=== PATIENT | male | born 1980 | race Caucasian/White ===

== ENCOUNTER 2020-11-03 02:02 | Outpatient (CLI) | payer BC, SELFPAY ==
[2020-11-03 18:59] LABS: SARS-CoV-2 RNA PCR Negative
== END 2020-11-03 02:03 | disposition home or self-care (01) ==
LOC: ANHCOVIDDT 02:04
PROVIDERS: PCP Family Medicine; Visit Provider Internal Medicine Gastroenterology
DX: Z01.812 Encounter for preprocedural laboratory examination (principal); Z20.828 Contact with and (suspected) exposure to other viral communicable diseases
CPT/HCPCS: 87635; C9803; U0003

== ENCOUNTER → 2020-11-07 10:30 | Day surgery (SDC) | payer BC, SELFPAY ==
[2020-11-02 10:20] VITALS: BMI 25.7
[2020-11-07] MEDS: LACTATED RINGERS 1,000 ML 150 ML IV CONT (06:55)
[2020-11-07 06:57] VITALS: BP 133/87; PULSE 96; RESP 16; TEMP 36.6; O2SAT 98; BMI 25.7
--- NOTE | 2020-11-07 07:58 | WPDANESEPPF ---
Anes - Initial Pre Proc Eval Procedure: Operation Date: 11/07/20 08:15 Proposed Procedures p Colonoscopy - Long Albright MD Date/Time: 11/07/20 07:58 Surgeon: Long Albright MD Pre Op Diagnosis: Rectal Bleeding Patient Data Age: 40 Gender: M Height: 6 ft Weight: 85.9 kg Last Vital Signs Temp 98 F 11/07/20 06:57 Pulse 96 11/07/20 06:57 Resp 16 11/07/20 06:57 BP 133/87 11/07/20 06:57 Pulse Ox 98 11/07/20 06:57 Allergies Allergy/AdvReac Type Severity Reaction Status Date / Time No Known Allergies Allergy Mild Verified 11/07/20 06:56 Home Medications Medication Instructions Recorded Confirmed Type sodium,potassium,mag sulfates 17.5 See Rx Instructions PO .COMPLEX 11/02/20 Rx gram-3.13 gram-1.6 gram oral soln #354 ml Patient hx anesthesia problems: none Family hx anesthesia problems: none [facility], [facility] Past Medical History Medical History (Updated 11/07/20 @ 07:58 by Saravanan Etienne MD) Healthy adult Hemorrhoid Social History Social History Smoking status: Never smoker Alcohol intake: current Drinks per week: 2 Substance use: never Substance use type: does not use Living arrangements: with family Gender identity (if verbalized by the patient): Male Spiritual care concerns: No Anes - Eval Final PreProcedure Day of Procedure 11/07/20 07:58 Patient weight: normal Heart: regular rate and rhythm Lungs: clear to auscultation Airway: Mallampati scale class II Neurological: alert and oriented Last oral intake: >/= 8 hours ASA classification: I Emergent: no Anesthetic plan: proceed Anesthesia type and monitoring: general GIVS and standard monitoring Informed Consent: The patient's anesthetic plan and its attendant risks and benefits were discussed with the patient/family/POA. Questions were solicited and answers provided to the satisfaction of the patient/family/POA.
--- NOTE | 2020-11-07 08:14 | WPDHPUPDATE1 ---
History and Physical Update Update Date/Time: 11/07/20 08:14 History and Physical has been reviewed, including an updated exam of the patient. There are NO changes in the patient's condition. Risks, benefits, and alternatives have been discussed and questions answered. Patient agrees to proceed with procedure.
[2020-11-07 08:42] VITALS: BP 111/79; PULSE 96; RESP 20; O2SAT 97
[2020-11-07 08:52] VITALS: BP 108/73; PULSE 74; RESP 21; O2SAT 97
[2020-11-07 09:02] VITALS: BP 118/76; PULSE 76; RESP 19; O2SAT 98
== END ==
PROVIDERS: PCP Family Medicine; Visit Provider Internal Medicine Gastroenterology
PROC: 0DJD8ZZ Inspection of Lower Intestinal Tract, Via Natural or Artificial Opening Endoscopic (ICD-10-PCS; CPT 45378; principal; 2020-11-07 08:15)
DX: K62.5 Hemorrhage of anus and rectum (principal); D12.4 Benign neoplasm of descending colon; K92.1 Melena; K57.30 Diverticulosis of large intestine without perforation or abscess without bleeding; K64.8 Other hemorrhoids
CPT/HCPCS: 45385; 88305; J2704; J7120

== ENCOUNTER 2023-11-24 02:51 | Day surgery (SDC) | payer BC, SELFPAY ==
[2023-10-27 11:40] VITALS: BMI 26.4
--- NOTE | 2023-11-20 10:32 | SUR.PREOP ---
Patient called regarding upcoming procedure. Reviewed preop instructions, appointment times, and procedure prep.
[2023-11-24 06:21] VITALS: BP 142/87; PULSE 78; RESP 16; TEMP 36.4; O2SAT 100; BMI 26.5
[2023-11-24] MEDS: LACTATED RINGERS 1,000 ML 150 ML IV CONT (06:29)
--- NOTE | 2023-11-24 07:14 | P.PNAN_ITS ---
Anes - Initial Pre Proc Eval Procedure: Operation Date: 11/24/23 07:30 Proposed Procedures p Esophagogastroduodenoscopy - Long Albright MD Date/Time: 11/24/23 07:14 Surgeon: Long Albright MD Pre Op Diagnosis: dysphagia,fam hx of digestive diseases, Patient Data Age: 43 Gender: M Height: 1.83 m Weight: 88.8 kg Last Vital Signs Temp 97.5 F L 11/24/23 06:21 Pulse 78 11/24/23 06:21 Resp 16 11/24/23 06:21 BP 142/87 H 11/24/23 06:21 Pulse Ox 100 11/24/23 06:21 O2 Del Method Room Air 11/24/23 06:21 Allergies Allergy/AdvReac Type Severity Reaction Status Date / Time No Known Allergies Allergy Mild Verified 11/24/23 06:21 Home Medications Medication Instructions Recorded Confirmed Type No Home Medications 10/15/23 11/24/23 History Patient hx anesthesia problems: none Family hx anesthesia problems: none Results Review: All pre-operative results and documents have been reviewed as part of the pre- operative evaluation. [facility] Past Medical History Medical History Healthy adult Hemorrhoid Social History Social History (Updated 10/15/23 @ 07:48 by Hailey Minaya MA) Smoking status: Never smoker Alcohol intake: current Drinks per week: 1 Substance use: never Substance use type: does not use Living arrangements: with family Occupation/Education: occupation Gender identity (if verbalized by the patient): Male Sexual Orientation (if Verbalized by the Patient): Straight or Heterosexual Spiritual care concerns: No Anes - Eval Final PreProcedure Day of Procedure 11/24/23 07:14 Patient weight: normal Heart: regular rate and rhythm Lungs: clear to auscultation Airway: Mallampati scale class II Neurological: alert and oriented Last oral intake: >/= 8 hours ASA classification: I Emergent: no Anesthetic plan: proceed Anesthesia type and monitoring: general GIVS and standard monitoring Results Review: All pre-operative results and documents have been reviewed as part of the pre- operative evaluation. Informed Consent: The patient's anesthetic plan and its attendant risks and benefits were discussed with the patient/family/POA. Questions were solicited and answers provided to the satisfaction of the patient/family/POA.
--- NOTE | 2023-11-24 07:34 | PM.HPGS ---
History of Present Illness History of Present Illness Consent: Risks, benefits, and alternatives have been discussed and questions answered. Patient agrees to proceed with procedure. Chief complaint: dysphagia,fam hx of digestive diseases, Narrative: Moi Armstrong is a 43 year old male with intermittent dysphagia for several years, never had egd. Esophagram showed hiatal hernia Review of Systems Constitutional: Constitutional: Denies headache(s) and Denies weakness Eyes: Eyes: Denies blurry vision ENT: Reports Normal hearing present, Denies headache(s) and Denies neck pain Cardiovascular: Cardiovascular: Denies chest pain and Denies dyspnea Respiratory: Respiratory: Denies dyspnea Gastrointestinal: Gastrointestinal: Reports no additional gastrointestinal complaints Genitourinary: Genitourinary: Denies dysuria Musculoskeletal: Musculoskeletal: Denies neck pain Integumentary/Breasts: Skin/Breast: Denies dry skin Neurologic: Reports Normal hearing present, Denies headache(s) and Denies weakness Psychiatric: Psychiatric: Denies anxiety Endocrine: Endocrine: Denies change in body appearance Hematologic/Lymphatic: Hematologic/Lymphatic: Denies easy bleeding Allergic/Immunologic: Allergic/Immunologic: Denies urticaria PMFSH Past Medical History Medical History (Updated 11/24/23 @ 07:35 by Long Albright MD) Dysphagia Healthy adult Hemorrhoid Social History Social History (Updated 10/15/23 @ 07:48 by Hailey Minaya MA) Smoking status: Never smoker Alcohol intake: current Drinks per week: 1 Substance use: never Substance use type: does not use Living arrangements: with family Occupation/Education: occupation Gender identity (if verbalized by the patient): Male Sexual Orientation (if Verbalized by the Patient): Straight or Heterosexual Spiritual care concerns: No Meds Home Medications and Allergies Home Medications Medication Instructions Recorded Confirmed Type No Home Medications 10/15/23 11/24/23 History Allergies Allergy/AdvReac Type Severity Reaction Status Date / Time No Known Allergies Allergy Mild Verified 11/24/23 06:21 Vital Signs Vital Signs - 24 hr 11/24/23 06:21 Temperature 97.5 F L Pulse Rate 78 Respiratory Rate 16 Blood Pressure 142/87 H Pulse Oximetry 100 Oxygen Delivery Room Air Exam Const: General: comfortable and no acute distress HENMT: Face/Nose/Sinus: Normal nares present Eyes: General: appearance normal, both eyes and all related structures Neck: Neck: no JVD Resp: Auscultation: clear to auscultation bilaterally Cardio: Rate: regular rate Rhythm: regular rhythm GI: Inspection: non-distended GI Palp: Yes Soft to palpation Skin: General skin exam: normal color Neuro: General: gait normal Speech: normal speech Extrem: General: normal to inspection Psych: Mental Status: mental status grossly normal Assessment and Plan Assessment and plan (1) Hiatal hernia: Code(s): K44.9 - Diaphragmatic hernia without obstruction or gangrene Status: Acute (2) Dysphagia: Code(s): R13.10 - Dysphagia, unspecified Status: Acute Assessment and Plan: egd to assess
[2023-11-24 07:46] VITALS: BP 116/82; PULSE 74; RESP 17; O2SAT 99
[2023-11-24 07:56] VITALS: BP 122/83; PULSE 66; RESP 16; O2SAT 98
[2023-11-24 08:06] VITALS: BP 121/86; PULSE 61; RESP 22; O2SAT 97
== END 2023-11-24 08:12 | disposition home or self-care (01) ==
PROVIDERS: PCP Family Medicine; Visit Provider Internal Medicine Gastroenterology
PROC: 0DJ08ZZ Inspection of Upper Intestinal Tract, Via Natural or Artificial Opening Endoscopic (ICD-10-PCS; CPT 43235; principal; 2023-11-24 07:30)
DX: K44.9 Diaphragmatic hernia without obstruction or gangrene (principal); K22.2 Esophageal obstruction; K21.00 Gastro-esophageal reflux disease with esophagitis, without bleeding; K29.50 Unspecified chronic gastritis without bleeding
CPT/HCPCS: 43450; 43239; 88305; J2704; J7120

== ENCOUNTER 2024-12-08 00:35 | Day surgery (SDC) | payer BC, SELFPAY ==
[2024-12-06 08:14] VITALS: BMI 26.4
--- NOTE | 2024-12-06 08:15 | PC.NURSE ---
Addendum entered by Chuckie Mehta RN 12/06/24 14:20: Procedure time is 1215. Original Note: Report to the Outpatient Waiting Room, entrance under the green pavilion located off [facility], at time _1015_ on date _[id number]_. Planned Procedure Time: __.? Time changes happen often and if your time is changed the preop area will call you the afternoon before. - You and your visitor will be asked to self-screen and do not enter if you have any COVID symptoms. Please call surgeon if you need to reschedule. - A mask is optional within the hospital at this time. Patients may have clear liquids (water, carbonated beverages, clear teas, apple juice) until 3 hours prior to surgery with a maximum of 20 ounces. - No food from midnight until time of surgery and no smoking. This includes no chewing gum, candy or mints. Take only the following medications with a SIP of water on the morning of surgery: ___None DO NOT STOP ANY OF YOUR OTHER PRESCRIPTION MEDICATIONS PRIOR TO SURGERY EXCEPT THE FOLLOWING Medications to discontinue per physician None____ Date to take last dose Please no make-up, nail bangladeshi, hairspray, perfume, deodorant, or body powder the day of surgery.? No jewelry (including any body piercings) or valuables the day of surgery, leave them at home.? Please take a shower or bath the night before, or the morning of, surgery with an antibacterial soap.? Wear comfortable, loose fitting clothing.? - Jewelry must be removed prior to entering the operating room.? Rings and piercings that are not removed may be cut off. - The hospital will not accept responsibility for valuables.? - Please leave all valuables, including medications, at home the day of surgery. If you are going home after surgery, a licensed stunt driver must drive you home.? - NO public transportation without another adult if you receive anesthesia. - We recommend that an adult stay with you for 24 hours following discharge. - We also recommend that you do not drive, make important decision, drink alcoholic beverages, or take any drugs that were not prescribed by your health care provider for at least 24 hours after your discharge time. Follow any additional instructions given to you from your surgeon. Telephone instructions given to __Brian___and asked if any additional questions and then verbalized understanding. Patient advised to call surgeon office or pre surgery nurse liaison [phone] if any additional questions.
--- NOTE | 2024-12-07 16:00 | P.PNAN_ITS ---
Anes - Initial Pre Proc Eval Procedure: Operation Date: 12/08/24 11:15 Proposed Procedures p Cystoscopy, Urethral Dilatation - Timbo Michel MD Date/Time: 12/07/24 16:00 Surgeon: Timbo Michel MD Pre Op Diagnosis: urethral stricuture Patient Data Age: 44 Gender: M Height: 1.83 m Weight: 88.6 kg Allergies Allergy/AdvReac Type Severity Reaction Status Date / Time No Known Allergies Allergy Mild Verified 12/08/24 09:13 Home Medications ?Medication ?Instructions ?Recorded ?Confirmed ?Type No Home Medications 10/15/23 12/06/24 History Patient hx anesthesia problems: none Family hx anesthesia problems: none Results Review: All pre-operative results and documents have been reviewed as part of the pre- operative evaluation. [facility]LY [facility], [facility] Past Medical History Medical History (Updated 12/08/24 @ 09:53 by Omari Lantigua DO) Hiatal hernia Dysphagia Healthy adult Hemorrhoid Social History Social History Smoking status: Never smoker Alcohol intake: current Drinks per week: 1 Substance use: never Substance use type: does not use Living arrangements: with family Occupation/Education: occupation Gender identity (if verbalized by the patient): Male Sexual Orientation (if Verbalized by the Patient): Straight or Heterosexual Spiritual care concerns: No Anes - Eval Final PreProcedure Day of Procedure 12/07/24 16:00 Patient weight: overweight Heart: regular rate and rhythm Lungs: clear to auscultation Airway: Mallampati scale class II Neurological: alert and oriented Last oral intake: >/= 8 hours ASA classification: II Emergent: no Anesthetic plan: proceed Anesthesia type and monitoring: general GIVS and standard monitoring Results Review: All pre-operative results and documents have been reviewed as part of the pre- operative evaluation. Informed Consent: The patient's anesthetic plan and its attendant risks and benefits were discussed with the patient/family/POA. Questions were solicited and answers provided to the satisfaction of the patient/family/POA.
[2024-12-08] VITALS (8 sets, daily range): BP systolic 116–142; BP diastolic 71–92; PULSE 55–76; RESP 12–21; TEMP 36.3–36.7; O2SAT 98–100
--- NOTE | 2024-12-08 06:24 | WPDHPUPDATE1 ---
History and Physical Update Update Date/Time: 12/08/24 06:24 History and Physical has been reviewed, including an updated exam of the patient. There are NO changes in the patient's condition. Risks, benefits, and alternatives have been discussed and questions answered. Patient agrees to proceed with procedure.
[2024-12-08] MEDS: LACTATED RINGERS 1,000 ML 30 ML IV CONT (09:40)
[2024-12-08] MEDS: ceFAZolin 2 GM/D5W 50 ML 2 GM/50 ML BAG IVPB (10:52)
--- NOTE | 2024-12-08 11:23 | W.PM.PROC2 ---
Procedure Note - Detailed Date of Procedure 12/08/24 Pre-op Diagnosis Urethral stricuture Post-op Diagnosis Same Procedure Performed Cystoscopy, urethral dilatation Surgeon Timbo Michel MD Anesthesia General Description of Procedure The patient was brought to the operative suite where he was prepped and draped in a routine sterile fashion while in the dorsal lithotomy position. urethra scope EU was undertaken with a 19 F rigid cystoscope. He had 2 moderately constricting bulbous urethral strictures which I dilated from 18 F to 28 F using Tonia sounds with ease. Completion cystoscopy showed mild lateral lobe hyperplasia of the prostate without obstruction of the prostatic urethra. There was no median lobe enlargement. The bladder was slightly trabeculated. Mucosa of the bladder was normal without hyperemia. There was no intravesical foreign body or neoplasm. He had a single orthotopic ureteral orifice bilaterally. This point the cystoscope was removed and patient was taken recovery room in good condition. Drains No Pathology None sent Complications No immediate complications Condition Stable
== END 2024-12-08 12:35 | disposition home or self-care (01) ==
PROVIDERS: PCP Family Medicine; Visit Provider Urology
PROC: 0T7D8ZZ Dilation of Urethra, Via Natural or Artificial Opening Endoscopic (ICD-10-PCS; CPT 52281; principal; 2024-12-08 11:15)
DX: N35.912 Unspecified bulbous urethral stricture, male (principal)
CPT/HCPCS: 52281; A9270; J0690; J1100; J1885; J2405; J2704; J7120

== ENCOUNTER 2025-09-27 02:05 | Day surgery (SDC) | payer BC, SELFPAY ==
[2025-09-18 14:49] VITALS: BMI 25.7
[2025-09-27 09:22] VITALS: BP 148/101; PULSE 72; RESP 16; TEMP 36.4; O2SAT 100; BMI 26.2
--- NOTE | 2025-09-27 09:32 | WPDANESEPPF ---
Anes - Initial Pre Proc Eval Procedure: Operation Date: 09/27/25 10:30 Proposed Procedures p Screening Colonoscopy - Long Albright MD Date/Time: 09/27/25 09:32 Surgeon: Long Albright MD Pre Op Diagnosis: Personal history of colon polyps, unspecified Patient Data Age: 44 Gender: M Height: 1.83 m Weight: 87.5 kg Last Vital Signs Temp 36.4 C 09/27/25 09:22 Pulse 72 09/27/25 09:22 Resp 16 09/27/25 09:22 BP 148/101 H 09/27/25 09:22 Pulse Ox 100 09/27/25 09:22 O2 Del Method Room Air 09/27/25 09:22 Allergies Allergy/AdvReac Type Severity Reaction Status Date / Time No Known Allergies Allergy Mild Verified 09/27/25 09:28 Home Medications ?Medication ?Instructions ?Recorded ?Confirmed ?Type No Home Medications 09/18/25 09/18/25 History Patient hx anesthesia problems: none Family hx anesthesia problems: none Results Review: All pre-operative results and documents have been reviewed as part of the pre-operative evaluation. FORMERLY [facility] Past Medical History Medical History (Updated 12/08/24 @ 11:28 by Timbo Michel MD) Hiatal hernia Dysphagia Healthy adult Hemorrhoid Social History Social History Smoking status: Never smoker Alcohol intake: never Drinks per week: 1 Substance use: never Substance use type: does not use Living arrangements: with family Occupation/Education: occupation Gender identity (if verbalized by the patient): Male Sexual Orientation (if Verbalized by the Patient): Straight or Heterosexual Spiritual care concerns: No Anes - Eval Final PreProcedure Day of Procedure 09/27/25 09:32 Patient weight: overweight Heart: regular rate and rhythm Lungs: clear to auscultation Airway: Mallampati scale class II Neurological: alert and oriented Last oral intake: >/= 8 hours ASA classification: II Emergent: no Anesthetic plan: proceed Anesthesia type and monitoring: general GIVS and standard monitoring Results Review: All pre-operative results and documents have been reviewed as part of the pre-operative evaluation. Informed Consent: The patient's anesthetic plan and its attendant risks and benefits were discussed with the patient/family/POA. Questions were solicited and answers provided to the satisfaction of the patient/family/POA.
[2025-09-27] MEDS: LACTATED RINGERS 1,000 ML 150 ML IV CONT (09:41)
--- NOTE | 2025-09-27 11:01 | P.HP_ITS ---
History of Present Illness History of Present Illness Consent: Risks, benefits, and alternatives have been discussed and questions answered. Patient agrees to proceed with procedure. Chief complaint: Personal history of colon polyps, unspecified Narrative: Moi Armstrong is a 44 year old male with colon polyp in 2019 Review of Systems Review of Systems: All systems reviewed & are unremarkable except as noted in HPI and below PMFSH Past Medical History Medical History (Updated 09/27/25 @ 11:02 by Long Albright MD) Colon polyp Hiatal hernia Dysphagia Healthy adult Hemorrhoid Social History Social History Smoking status: Never smoker Alcohol intake: never Drinks per week: 1 Substance use: never Substance use type: does not use Living arrangements: with family Occupation/Education: occupation Gender identity (if verbalized by the patient): Male Sexual Orientation (if Verbalized by the Patient): Straight or Heterosexual Spiritual care concerns: No Meds Home Medications and Allergies Home Medications ?Medication ?Instructions ?Recorded ?Confirmed ?Type No Home Medications 09/18/25 09/18/25 H istory Allergies Allergy/AdvReac Type Severity Reaction Status Date / Time No Known Allergies Allergy Mild Verified 09/27/25 09:28 Vital Signs Vital Signs - 24 hr 09/27/25 09:22 Temperature 97.6 F Pulse Rate 72 Respiratory Rate 16 Blood Pressure 148/101 H Pulse Oximetry 100 Oxygen Delivery Room Air Exam Const: General: comfortable and no acute distress HENMT: Face/Nose/Sinus: Normal nares present Eyes: General: appearance normal, both eyes and all related structures Neck: Neck: no JVD Resp: Auscultation: clear to auscultation bilaterally Cardio: Rate: regular rate Rhythm: regular rhythm GI: Inspection: non-distended GI Palp: Yes Soft to palpation Skin: General skin exam: normal color Extrem: General: normal to inspection Psych: Mental Status: mental status grossly normal Assessment and Plan Assessment and plan (1) Colon polyp: Code(s): K63.5 - Polyp of colon Status: Acute Assessment and Plan: colonoscopy
[2025-09-27 11:18] VITALS: BP 112/69; PULSE 72; RESP 20; O2SAT 96
--- NOTE | 2025-09-27 11:21 | S_PTH ---
PATIENT: Moi Armstrong LOC: [facility] Guillory#:[id number] AGE/SX: 44/M ROOM: RE09/27/[address]: Long Albright MD : 1980 BED: DIS: 09/27/2025 SPEC #: [id number] RECD: 09/27/25 13:27 STATUS: SARAH REGeo #: [id number] TOM: 09/27/25 11:[address]: Long Albright DEPT: [facility] Surgical RECD BY: Urvashi Powers ENTERED: 09/27/25 13:27 SP TYPE: Surgical OTHR DR: Daniel Sanchez MD Tissues: A - Colon Polypectomy Procedures: Hematoxylin and Eosin Stain Gross and Microscopic Level 4
[2025-09-27 11:28] VITALS: BP 120/81; PULSE 65; RESP 13; O2SAT 97
[2025-09-27 11:38] VITALS: BP 115/85; PULSE 75; RESP 22; O2SAT 97
== END 2025-09-27 11:52 | disposition home or self-care (01) ==
PROVIDERS: PCP Family Medicine; Visit Provider Internal Medicine Gastroenterology
PROC: 0DJD8ZZ Inspection of Lower Intestinal Tract, Via Natural or Artificial Opening Endoscopic (ICD-10-PCS; CPT 45378; principal; 2025-09-27 10:30)
DX: Z12.11 Encounter for screening for malignant neoplasm of colon (principal); K62.1 Rectal polyp; K64.8 Other hemorrhoids; K57.30 Diverticulosis of large intestine without perforation or abscess without bleeding; Z87.19 Personal history of other diseases of the digestive system
CPT/HCPCS: 45380; 88305; J2003; J2704; J7120